=== PATIENT | female | born 1945 | race Caucasian/White ===

== ENCOUNTER → 2019-02-04 11:05 | Outpatient (CLI) | payer MEDICARE, SELFPAY ==
--- NOTE | 2019-02-04 | DI.MRI.S_ITS ---
PROCEDURE: MR PELIS WO/W CON INDICATIONS: disorder of bone, unspecified TECHNIQUE: Noncontrast axial and oblique coronal T1 spin echo and STIR through the sacroiliac joints. COMPARISON: [facility], RG, MRI PELVIS W/WO CONTRAST, 08/28/2018, 15:07. SNO Outside Film, NM, NM BONE SCAN WHOLE BODY, 06/06/2018, 9:15. SNO Outside Film, MR, MR HIP LEFT WITHOUT CONTRAST, 05/28/2018, 14:36. SNO Outside Film, RG, HIP COMP MIN 2VW (LT), 05/12/2018, 11:38. FINDINGS: Image quality: Excellent. Bones: The sacroiliac joints appear intact. No adjacent bone marrow edema to suggest active sacroiliitis. No bony ankylosis. No suspicious marrow space occupying lesions. Note is made of mild focal marrow signal abnormality at the anterior acetabular roof of the left hip, slightly more prominent on the current study than on the comparison MRI from 05/28/18, however the comparison is somewhat difficult due to to difference in MR scanner is utilized. There has been minimal interval worsening if any. The abnormality is comprised of focal edema, having not increased in size, but somewhat better visualized by the current MR scanning technique. This is best seen on sagittal series 4 image 35 when compared to prior series 701, image 15. It is also visible on the axial fluid sensitive imaging series 6 image 20 versus prior series 601 and image 33. Within the proximal metadiaphyseal junction of the left femur there is a rounded focus of elevated fluid signal exactly centered in the medullary space previously seen on series 801, image 16 versus series 3 image 22. This also has not enlarged in size. Throughout the remainder of the osseous structures of the pelvis no marrow space abnormality is seen. No adenopathy is found. No impingement on the sacral plexus is identified. Soft tissues: No presacral masses. Rectum appears normal in caliber and wall thickness. No pathologic free pelvic fluid. IMPRESSION: The earliest available comparable study is from a [facility] dated 05/28/18, and is not changed over time. As discussed above there is mild medullary space edema at the anterior border of the acetabular roof on the left, and also focal central medullary space edema in a rounded morphology measuring approximately 1 cm diameter at the proximal metadiaphyseal junction of the left femur. Each of these areas appear essentially identical by MR scanning considering slight differences in scan technique. The acetabular abnormality is considered likely degenerative in origin. This area shows mild asymmetric bone scan activity as expected, from the study performed 06/06/18. The proximal femoral medullary space abnormality is most likely benign given the absence of abnormal bone scan activity in that area on the prior nuclear medicine bone scan 06/06/18. Each of these areas cannot be identified by plain film. If followup is clinically desired MR scanning appears warranted rather than plain film followup. Dictated by: Freddy Michelle M.D. on 02/13/2019 at 10:40 Approved by: Freddy Michelle M.D. on 02/13/2019 at 10:47
== END ==
PROVIDERS: Visit Provider Family Medicine
DX: M89.9 Disorder of bone, unspecified (principal)
CPT/HCPCS: 72197; A9579

== ENCOUNTER 2024-05-28 10:15 | Day surgery (SDC) | payer MEDICARE, OTHER, SELFPAY ==
[2024-05-28 11:12] VITALS: BP 120/60; PULSE 76; RESP 16; TEMP 36.1; O2SAT 99
[2024-05-28 11:25] VITALS: BMI 21.9
--- NOTE | 2024-05-28 11:36 | P.HP_ITS ---
History of Present Illness History of Present Illness Date Patient Seen: 05/28/24 Time Patient Seen: 11:36 Chief complaint: SDC Narrative: Maria Luz is a 78-year-old woman here for colonoscopy. Her last colonoscopy was at [facility]. No family history of colon cancer. [facility] Social History Smoking Status: Never smoker alcohol intake: current Meds Home Medications and Allergies Home Medications Medication Instructions Recorded Confirmed Type sodium,potassium,mag sulfates 17.5 See Rx Instructions PO .COMPLEX 04/20/24 Rx gram-3.13 gram-1.6 gram oral soln #354 mL (Suprep Bowel Prep Kit) Allergies Allergy/AdvReac Type Severity Reaction Status Date / Time No Known Drug Allergies Allergy Verified 05/28/24 11:08 Exam Vital Signs (past 8 hours): - 05/28/24 11:12 Temperature 97 F L Pulse Rate 76 Respiratory Rate 16 Blood Pressure 120/60 Pulse Oximetry 99 Const General: healthy appearing Resp Effort & Inspection: normal respiratory effort Assessment & Plan Assessment and plan (1) Colon cancer screening: Status: Acute Plan Colonoscopy Time-Based Coding :: [TOTAL MINUTES] spent with patient and on the chart (including review of chart, obtaining history, exam, reviewing outside data, placing orders, documenting exam and treatment plan, and counseling patient) on [DATE].
[2024-05-28 12:00] VITALS: BP 104/62; PULSE 61; RESP 16; TEMP 36.7; O2SAT 98
--- NOTE | 2024-05-28 12:00 | PM.OP.COLON ---
Operative Date/Time/Diagnoses Date of procedure: 05/28/24 Time of procedure: 12:00 Pre-op diagnosis: Colon cancer screening Post-op diagnosis: same Procedure & Clinicians Study performed: Colonoscopy Same procedure as scheduled: Yes Surgeon: Jam Deng Procedure Notes Procedure in detail: Surgeon: Jam Deng MD Anesthesia: Hannah Valenzuela CRNA Procedure: The patient was brought to the endoscopy suite, placed in left lateral decubitus position. The patient was connected to monitoring devices. A time-out was performed. Sedation was administered. Once the patient was adequately sedated, a digital rectal exam was performed and was normal. The scope was then inserted and advanced to the cecum where the appendiceal orifice was identified and photographed. The scope was then slowly withdrawn over greater than 6 minutes. The mucosa was thoroughly inspected. No abnormalities were identified. The scope was retroflexed in the rectum. The scope was straightened and removed. The patient was awakened and brought to recovery. Scope withdrawal time: 7 minutes Sedation time: 14 minute EBL: 0 Findings: Normal colon Post-procedure Disposition: PACU
[2024-05-28 12:05] VITALS: BP 95/68; PULSE 78; RESP 12; TEMP 36.6; O2SAT 98
[2024-05-28 12:11] VITALS: BP 105/65; PULSE 65; RESP 15; TEMP 36.6; O2SAT 98
== END 2024-05-28 12:24 | disposition home or self-care (01) ==
PROVIDERS: PCP Internal Medicine; Referring Provider Surgery; Visit Provider Surgery
PROC: 0DJD8ZZ Inspection of Lower Intestinal Tract, Via Natural or Artificial Opening Endoscopic (ICD-10-PCS; CPT 45378; principal; 2024-05-28 11:30)
DX: Z12.11 Encounter for screening for malignant neoplasm of colon (principal)
CPT/HCPCS: G0121; J2704

== ENCOUNTER → 2024-06-29 12:26 | Outpatient (CLI) | payer MEDICARE, OTHER, SELFPAY ==
--- NOTE | 2024-06-29 12:28 | DI.RAD.S_ITS ---
PROCEDURE: XR CHEST 2V INDICATIONS: Shortness of breath TECHNIQUE: 2 views of the chest were acquired. COMPARISON: None. FINDINGS: Surgical changes and devices: None. Lungs and pleura: Lungs are clear. No pleural effusions or pneumothorax. Mediastinum: Mediastinal contours are normal. Heart size is normal. Bones and chest wall: No suspicious bony abnormalities. Soft tissues appear unremarkable. IMPRESSION: No acute cardiopulmonary pathology. Dictated by: Ezekiel Payne M.D. on 06/29/2024 at 18:53 Approved by: Ezekiel Payne M.D. on 06/29/2024 at 18:53
== END ==
PROVIDERS: PCP Internal Medicine; Referring Provider Internal Medicine; Visit Provider Internal Medicine
DX: R06.02 Shortness of breath (principal)
CPT/HCPCS: 71046

== ENCOUNTER → 2024-07-13 16:07 | Outpatient (CLI) | payer MEDICARE, OTHER, SELFPAY | LOC: RESP 16:08 | PROVIDERS: PCP Internal Medicine; Referring Provider Internal Medicine; Visit Provider Internal Medicine | DX: R06.02 Shortness of breath (principal); R94.2 Abnormal results of pulmonary function studies | CPT/HCPCS: 94060; 94726; 94729 ==

== ENCOUNTER 2024-08-25 11:37 | Day surgery (SDC) | payer MEDICARE, OTHER, SELFPAY ==
[2024-08-13 08:08] VITALS: BMI 22.6
[2024-08-13 09:45] VITALS: BMI 22.6
[2024-08-25] VITALS (9 sets, daily range): BP systolic 113–160; BP diastolic 55–82; PULSE 16–62; RESP 16–98; TEMP 35.8–36.6; O2SAT 97–100; BMI 21.9
--- NOTE | 2024-08-25 | DI.RAD.S_ITS ---
PROCEDURE: [id number] W PEL IF PERFORMED INDICATIONS: INTEROP TOTAL LEFT HIP ARTHROPLASTY TECHNIQUE: 4 intraoperative fluoroscopic view(s) of the left hip(s). COMPARISON: None. FINDINGS: Intraoperative fluoroscopic images shows left total hip arthroplasty in progress. IMPRESSION: Fluoro guidance was provided intraoperatively for left total hip arthroplasty performed by ordering physician. Dictated by: Ezekiel Payne M.D. on 08/25/2024 at 17:35 Approved by: Ezekiel Payne M.D. on 08/25/2024 at 17:36
--- NOTE | 2024-08-25 06:36 | DI.RAD.S_ITS ---
PROCEDURE: XR HIP W PEL IF DONE LT 2V INDICATIONS: left total hip TECHNIQUE: AP pelvis and lateral view of the hip acquired. COMPARISON: None. FINDINGS: Bones: Patient is status post left hip arthroplasty, with hardware components in expected positions. The hip joint appears congruent. The visualized bony structures appear intact. Soft tissues: Overlying postoperative changes are noted. No suspicious soft tissue densities. IMPRESSION: Expected post-operative appearance of a hip arthroplasty. Dictated by: Ezekiel Payne M.D. on 08/25/2024 at 17:12 Approved by: Ezekiel Payne M.D. on 08/25/2024 at 17:13
[2024-08-25] MEDS: CELECOXIB 200 MG CAPSULE PO (12:33)
[2024-08-25] MEDS: ACETAMINOPHEN 325 MG TABLET 975 MG PO (12:33)
[2024-08-25] MEDS: LACTATED RINGERS 1,000 ML 42 ML IV ×2 (12:34→16:03)
[2024-08-25] MEDS: VANCOMYCIN 1,000 MG in SODIUM CHLORIDE 0.9% 250 ML IV (13:30)
--- NOTE | 2024-08-25 13:48 | P.OP_ITS ---
Operative Date/Time/Diagnoses Date of procedure: 08/25/24 Time of procedure: 14:00 Pre-op diagnosis: Left hip OA Post-op diagnosis: same Procedure & Clinicians Procedure: Left total hip arthroplasty anterior approach Same procedure as scheduled: Yes Indications: The patient has had progressively worsening left hip pain with radiographic trinh ges consistent with arthritis. Non-operative management has failed and the patient has requested total hip replacement. The risks, benefits and alternatives to surgery were discussed with the patient prior to proceeding. Risks discussed included, but were not limited to, failure to relieve pain, leg length discrepancy, dislocation, stiffness, infection, nerve damage, deep venous thrombosis, pulmonary embolism, stroke, coma, heart attack, permanent paralysis and , as well as the potential need for eventual revision of the prosthetic. Surgeon: Munira Garcia Room Service Waiter/Waitress: Aracelis Grant Anesthesia Type: General and Spinal Operative Notes Findings: Severe left hip OA, soft bone, adequate stability Closure Type: primary Specimen(s): none sent Prosthetic devices, grafts, tissues, transplants, or devices: Garcia and nephew R3 48, neutral poly liner 48 x 32,one 6.5 mm screw, polar stem standard offset size 2, 32 x -3 cobalt chrome head Estimated Blood Loss (mL): 250 Procedure in detail: The patient was brought to the operating room. Patient was carefully positioned in the supine position. Time-out was performed and antibiotics were given. Anesthesia was induced. She was positioned in the on the table in order to allow hyperextension of the hip. The left lower extremity was prepped and draped in a standard sterile fashion. An anterior left hip incision was made 1 fingerbreadth lateral to the anterior superior iliac spine and extended distally towards the greater trochanter. Dissection was carried out through skin and subcutaneous tissues. Superficial hemostasis was achieved. The fascia over the tensor fascia shelly was defined and incised with a knife. Two Allis clamps were used to grasp the fascia. Tensor fascia shelly was retracted laterally. A gelpi retractor was placed. Dissection was carried out down along the neck. The circumflex vessels were carefully identified and cauterized with the Aqua Mantis. A PA was used during the procedure was essential for intraoperative retraction and safe implantation of the components. There was good visualization of the femoral neck. A Cobra was placed superior to the neck and the gluteus fibers were carefully stripped from that superior aspect of the capsule. A 2nd retractor was placed along the inferior aspect of the neck. The rectus insertion along the capsule was partially released. A 3rd retractor that was then gently placed over the rim of the acetabulum under the rectus. Capsule was carefully incised and released from the intertrochanteric line circumferentially superior to the mid sagittal line and inferiorly to the mid sagittal line until the lesser trochanter was palpable. A tag stitch was placed both in the superior and inferior limb of the capsular insertion. Along the acetabulum capsule was also released up to the mid sagittal 12:00 position. A portion of the labrum was resected. A saw was used to perform an osteotomy at the level of the intertrochanteric line and the junction of the superior femoral neck leaving approximately 1 finger breath of residual inferior neck above the lesser trochanter. A 2nd cut was made along the femoral neck at the base of the head and a napkin ring of neck was removed. Corkscrew was placed in the femoral head and the head was removed without difficulty. Retractors were then repositioned around the acetabulum. Residual labrum was resected and additional osteophytes were removed. A reamer that was 4 mm below the templated size was placed by hand in the acetabulum and it was reamed to centralize the acetabulum. It was then reamed up to 2 under the templated size and fluoroscopy was brought in to confirm the position of the reaming and depth of reaming. I reamed 1 under the anticipated size. A trial cup was placed and noted that it was appropriately sized and fluoroscopy confirmed position and depth. The component was open and inserted without difficulty fluoroscopic imaging was used to confirm that the cup had been adequately seated and was well positioned. It was further stabilized with a single screw. Neutral poly liner was placed. The cup was tested and noted to be stable. Attention was then directed to the femur. The femur was gently hyperextended additional capsular release was performed as needed in order to allow adequate visualization of the proximal femur with elevation of the femur. Patient was placed in a hyperextended slightly adducted position with maximum external rotation. Box osteotome was used to check for any residual neck as well as sclerotic bone along the trochanter. Hammond pepper was placed in the femur. Additional broaching was performed. Canal finder was used to determine the alignment of the canal and position. Size 1 broach was placed. The canal was then appropriately broached up to the templated size as long as there was adequate stability of the broach and serial advancement of the broach without excessive impingement. Specific attention was directed at avoiding varus attempting to direct the distal aspect of the broach more anteriorly and avoiding excessive anteversion. Trial reduction showed acceptable range of motion, good stability, no posterior impingement, episcopalian of leg length and appropriate lateral shuck. I also hyperflexed the hip and checked that there was no impingement anteriorly and there was good stability with flexion, adduction and internal rotation. Marcaine and Exparel were injected. The stem was placed without difficulty. Repeat trial reduction and x-ray showed acceptable overall position, length, and no evidence of the femoral fracture. Final head was placed. Wound was meticulously irrigated with normal saline. The hip was reduced and additional Exparel and Marcaine were injected. The capsule was closed with interrupted nonabsorbable sutures. The fascia of the tensor was closed with interrupted and running Vicryl. No drain was placed. Any tensor fascia shelly muscle that appeared to be contused or injured which was a minimal amount was carefully resected. Capsule around the tensor was injected with Exparel and Marcaine. The skin was closed with barbed stitches for the subcutaneous tissue and skin. We also used surgical glue. The wound was dressed sterilely. Brief Betadine soak was also used and was meticulously irrigated with normal saline. Patient was transferred to recovery room in satisfactory condition. Complications: none Post-operative Condition: stable Disposition: Acute Care Plan for aftercare: The patient will be maintained on a standard total hip replacement protocol with weight bearing as tolerated and anterior hip precautions. The patient will receive Aspirin and sequential compression devices for DVT prophylaxis. The patient will be discharged home when safe for the home environment.
--- NOTE | 2024-08-25 13:48 | PM.PREOP ---
Pre-operative Note Interval Note History & Physical reviewed/Exam performed by Physician: Yes Changes to H&P: No
[2024-08-25] MEDS: BUPIVACAINE 0.25% W/ EPI 30 ML VIAL INJ ×2 (14:53→14:54)
[2024-08-25] MEDS: CEFAZOLIN 2 GM/100 ML PREMIX 100 ML IV ×2 (14:54→22:22)
[2024-08-25] MEDS: BUPIVACAINE LIPOSOME 266 MG/20 ML VIAL INJ (14:54)
[2024-08-25] MEDS: TRANEXAMIC ACID 1,000 MG VIAL 1000 MG INJ (14:55)
[2024-08-25] MEDS: LACTATED RINGERS 1,000 ML 100 ML IV (20:49)
[2024-08-25] MEDS: OXYCODONE IR 5 MG TABLET PO (20:52)
[2024-08-25] MEDS: DOCUSATE 100 MG CAPSULE PO (20:53)
[2024-08-25] MEDS: ACETAMINOPHEN 325 MG TABLET 650 MG PO (20:53)
[2024-08-25] MEDS: ASPIRIN EC 81 MG TABLET PO (20:53)
--- NOTE | 2024-08-25 22:32 | PC.NURSE ---
Addendum entered by Isabella Salcido R.N. 08/26/24 06:42: 0645: Pt taking PO fluids, d/c'ed IVF and NS locked. Addendum entered by Isabella Salcido R.N. 08/26/24 02:48: 0230: Pt called with concerns of side being wet after turning in the bed. Upon assessment, this RN noted a disconnected IV tubing undercutter with blood dripping out onto patient's gown and IV fluids running on to pt's bed. Pt did not know how this became disconnected. Paused IVF, disconnected undercutter, replaced IV tubing, and scrubbed remaining Jloop hub with CHX cap before flushing PIV, reconnecting pt and restarting IV fluids. Changed pt's gown and green pad, helped pt wash hands, wiped down call light with CHX wipe. VSWNL. Pt resting comfortably, call light within reach, plan of care continues. Original Note: NOC 1944: Pt OOB with 1PA/FWW, ambulated steadily to commode and back to bed. Pt voided 400mL post-surg. Educated pt director of agronomy light. Pt resting comfortably, pt reports needs met, bed low/locked, call light within reach. Plan of care continues.
[2024-08-26] MEDS: IBUPROFEN 400 MG TABLET PO ×2 (00:02→08:58)
[2024-08-26 00:20] VITALS: BP 152/72; PULSE 60; RESP 18; TEMP 36.4; O2SAT 95
[2024-08-26 04:17] LABS: Hematocrit 33.7 % (36-46); Hemoglobin 11.5 g/dL (12.0-16.0)
[2024-08-26] MEDS: CEFAZOLIN 2 GM/100 ML PREMIX 100 ML IV (06:01)
[2024-08-26] MEDS: OXYCODONE IR 5 MG TABLET PO ×3 (06:22→10:54)
[2024-08-26 08:00] VITALS: BP 140/71; PULSE 65; RESP 14; TEMP 36.3; O2SAT 97
--- NOTE | 2024-08-26 08:12 | PM.DS.1 ---
History of Present Illness History of Present Illness Date Patient Seen: 08/26/24 Time Patient Seen: 08:12 Chief complaint: OPB Narrative: The patient has had progressively worsening left hip pain with radiographic changes consistent with arthritis. Non-operative management has failed and the patient has requested total hip replacement. The risks, benefits and alternatives to surgery were discussed with the patient prior to proceeding. Risks discussed included, but were not limited to, failure to relieve pain, leg length discrepancy, dislocation, stiffness, infection, nerve damage, deep venous thrombosis, pulmonary embolism, stroke, coma, heart attack, permanent paralysis and , as well as the potential need for eventual revision of the prosthetic. Discharge Providers Provider Discharge Date: 08/26/24 Primary care physician: DAVID Guillaume Consults: 08/13/24 10:27 Consult to Anesthesiology Routine Comment: Consulting Provider: Anesthesiologist Reason for consultation: Surgeon request for cardiac. 08/25/24 06:36 Consult to Anesthesiology Routine Comment: Consulting Provider: Anesthesiologist Reason for consultation: Regional block for post operative pain control Has provider been notified: No 08/25/24 17:06 Consult to Discharge Planning Routine Comment: Consult to Occupational Therapy Evaluate & Treat Comment: Physician Instructions: Evaluate and treat Consult to Physical Therapy Evaluate & Treat Comment: Physician Instructions: post op RACHEL protocol Discharge provider: Pvaan Griffith PA-C Summary Hospital Course Discharge Diagnosis: Left hip OA Hospital Course: Procedure: Left total hip arthroplasty anterior approach Same procedure as scheduled: Yes Surgeon: Munira Garcia Property Analyst: Aracelis Grant Anesthesia Type: General and Spinal Operative Notes Findings: Severe left hip OA, soft bone, adequate stability Closure Type: primary Specimen(s): none sent Prosthetic devices, grafts, tissues, transplants, or devices: Garcia and nephew R3 48, neutral poly liner 48 x 32,one 6.5 mm screw, polar stem standard offset size 2, 32 x -3 cobalt chrome head Estimated Blood Loss (mL): 250 Status at Discharge Cognitive/behavioral status at discharge: oriented Functional status at discharge: uses cane/walker Overall status at discharge: patient is back to baseline Time Spent with Patient Time spent: Less than 30 minutes Exam Vital Signs (past 8 hours): - 08/26/24 00:20 Temperature 97.6 F Pulse Rate 60 Respiratory Rate 18 Blood Pressure 152/72 H Pulse Oximetry 95 Oxygen Flow Rate 0 Oxygen Delivery Method Room Air Oxygen Flow Rate 0 Narrative Exam Narrative: Patient found sitting in the chair. Patient's pain is controlled with oral medication. ?Pain is localized to surgical site. ?Patient declines any new numbness or tingling at the surgical extremity. ?Patient denies any shortness of breath, dizziness, light-headedness, nausea, vomiting, fever or chills. 5/5 strength in hip flexors, quadriceps, hamstrings, DF, PF, EHL bilaterally. Sensation to light touch intact throughout BLE. Calves soft, compressible, nontender. Dressing placed intraoperatively CDI. Const General: cooperative, healthy appearing and comfortable Resp Effort & Inspection: normal respiratory effort and able to speak in complete sentences Objective Labs 08/26/24 03:47 Labs: Laboratory Results - last 24 hr 08/26/24 03:47 Hgb 11.5 L Hct 33.7 L PFSH Medical History (Updated 08/13/24 @ 08:07 by Anabella Clement, RN) Normal cardiac ejection fraction (07/09/24) HLD (hyperlipidemia) HTN (hypertension) Surgical History (Updated 08/13/24 @ 10:23 by Anabella Clement, RN) History of carpal tunnel release Social History household members: spouse Smoking Status: Never smoker alcohol intake: current Discharge Assessment & Plan Assessment and Plan Assessment: Status post left hip total arthroplasty Plan of Treatment: Discharge to home. ? Anterior Hip Pre-causions. Ambulate and weight bear as tolerated with assistive devices. ? Aspirin 81 mg twice a day for 6 weeks for DVT prevention. ? Baseline pain relief with acetaminophen 500mg every 4 hours as needed and ibuprofen 400 mg every 4 hours as needed. ?Patient has been prescribed oxycodone 5 mg every 4 ?hours as needed for breakthrough pain. ? Initiate physical therapy in the next 5-10 days. ? Keep dressing clean and dry. Keep dressing on until first office visit. If dressing becomes dirty or disrupted, replace with appropriate sized dressing. Follow up in clinic in 2 weeks for wound check. Contact clinic if there are any questions or concerns. Discharge Plan Discharge Plan Patient Disposition: Home Discharge orders & Medications Discharge Orders: Discharge (Order); Ordered 08/26/24 Ordered By: Pavan Griffith Prescriptions: New aspirin 81 mg Tablet,Delayed Release (Dr/Ec) 81 mg PO BID Qty: 90 0RF Continued brimonidine 0.2 % drops 1 drp EYE-BOTH BID albuterol sulfate 90 mcg/actuation HFA aerosol inhaler 2 puff inhalation Q4H PRN (Reason: SOB) timolol maleate 0.5 % drops 1 drp EYE-BOTH BID captopril 12.5 mg Tablet 12.5 mg PO BID Changed ibuprofen 200 mg Tablet 400 mg PO Q4HR PRN (Reason: Hip pain.) Qty: 120 0RF Discontinued naproxen sodium [Aleve] 220 mg Tablet 220 mg PO Q12H PRN (Reason: Hip pain.) Follow up/Referrals: Leandra Freire ARNP [Primary Care Provider] - Diet/Activity/Treatments Diet: Diet as Tolerated Activity: Ambulate multiple times a day. Use a cane or walker as needed. Full weight on leg. Cold/Heat Therapy: Use ice multiple times a day. Skin/Wound/Dressing Care Skin care: Leave dressing on. Okay to shower Report to your healthcare provider any signs of infection, such as:: chills, fever, night sweats, unusual drainage and unusual redness Dressing: May shower. Leave dressing in place until follow up in office. No bathing or otherwise soaking incision. Call the office if the dressing becomes saturated inside. Visit Report/Discharge Packet Instructions: DI for Hip Replacement Stand Alone Forms: Patient Portal/API, Surgery Discharge Discharge Data Primary Care Provider: Leandra Freire Attending Provider: Munira Garcia
--- NOTE | 2024-08-26 08:30 | OT.IP.EVAL ---
Current Diagnoses Unilateral primary osteoarthritis, left hip (08/25/24) Surgery Performed Operation Date: 08/25/24 13:45 Actual Procedures p Total Hip Arthroplasty/Anterior Approach(Left) - Munira Garcia MD Past Medical History (Last Updated 08/13/24 @ 08:07 by Anabella Clement, RN) HLD (hyperlipidemia) HTN (hypertension) Normal cardiac ejection fraction (07/09/24) Surgical History (Last Updated 08/13/24 @ 10:23 by Anabella Clement, RN) History of carpal tunnel release Occupational Therapy Inpatient Evaluation/Re-Eval M1 PT/OT-IP Prior Functional Status Start: 08/26/24 12:03 Freq: NEEDED Status: Active Protocol: Document 08/26/24 12:03 [facility] (Rec: 08/26/24 12:16 [facility] [id number]) Medical Review Prior Functional Status Communication I Mobility and Gait I but had pain. Activities of Daily Living and IADL's Able to do all ADL and IADL needs but having difficulty to clip her left toenails. Social History Household Members spouse Living Arrangements House Number of Floors (Floors) One Floor Number of Stairs To Enter/Railing? One step from the front with no rails. Home Environment Standard Height Toilet,Tub/ Shower Home Equipment Front Wheel Walker,Raised Toilet Seat w/Armrests,Shower Seat with Backrest,Hand Held Shower,Grab Bars In Shower M2 OT-IP Current Condition Start: 08/26/24 12:03 Freq: Status: Active Protocol: Document 08/26/24 12:03 [facility] (Rec: 08/26/24 12:16 [facility] [id number]) Occupational Therapy Current Condition Current Condition Evaluation Date 08/26/24 Treatment Diagnosis S/P R RACHEL Diagnosis Onset Date 08/25/24 Post Operative Precautions Anterior Hip Precautions No Hip Extension,No Hip External Rotation M3 OT- IP Subjective and Pain Start: 08/26/24 12:03 Freq: Status: Active Protocol: Document 08/26/24 12:03 [facility] (Rec: 08/26/24 12:16 [facility] [id number]) OT- Subjective Occupational Therapy Visit Type Type Initial Evaluation Visit Start Time 08:30 Visit Stop Time 09:13 Occupational Therapy Visit Comments Patient Comments Pt agreed to get up and get dressed. Patient/Caregiver Goals To go home. OT Pain Assessment Pain When Pain Assessed At Rest Pain Present Pain Present Pain Reported Location Left Hip Intensity 3 Scale Used Numeric (0 - 10) M4 OT- IP ADL's Start: 08/26/24 12:03 Freq: Status: Active Protocol: Document 08/26/24 12:03 [facility] (Rec: 08/26/24 12:16 [facility] [id number]) OT LRM-[id number]-Yybawce General Evaluation Self-Feeding Ability Independent OT ADL-Grooming General Evaluation Grooming Ability Standby Assistance OT ADL-Oral Care General Eval Oral Care Ability Independent OT ADL-Dressing General Eval Upper Body Dressing Ability Independent Lower Body Dressing Ability Standby Assistance Comments OT Dressing Comments Assist for socks. Educated to dress the LLE first and take out last. OT ADL-Toileting Comments OT Toileting Comments Educated to be mindful of her LLE while wiping and dressing. OT ADL-Bathing Comments OT Bathing Comments Educated care of dressing while showering. M5 OT- IP IADL's Start: 08/26/24 12:03 Freq: Status: Active Protocol: Document 08/26/24 12:03 [facility] (Rec: 08/26/24 12:16 [facility] [id number]) OT-Instrumental Activities of Daily Living Deficits IADL Deficits Identified Deficits Home Safety Awareness Awareness of Need for Assistance at Home Good Awareness Ability to Problem Solve Emergency Able to Problem Solve Situations Medication Management Medication Management No Deficits Identified Money Management Money Management No Deficits Identified Meal Preparation Meal Preparation Comments to assist. Flap Presser Flap Presser Comments to assist. M6 OT- IP Functional Cognition Start: 08/26/24 12:03 Freq: Status: Active Protocol: Document 08/26/24 12:03 [facility] (Rec: 08/26/24 12:16 [facility] [id number]) Cognitive Factors Limiting Selfcare Function Cognitive Ability Level of Alertness Alert Patient Orientation Name,Age,Birthday,Month,Date, Year,Day of Week,Place, Situation Attention Span Ability Capable of Focused Attention, Capable of Sustained Attention Ability to Follow Commands Able to Follow Multi-Step Commands Memory Description No Deficits Noted Safety Awareness Decreased Ability to Apply Precautions Cognitive Comments Cognitive Assessment Comments Reminders to follow precautions when up on her feet. OT- Vision and Hearing OT- Hearing Assessment OT- Hearing Assessment WFL OT- Vision Assessment Visual Acuity Glasses For Reading Visual Attentiveness WFL Occular Pursuits WFL Visual Convergence WFL M7 OT- IP Mobility and Balance Start: 08/26/24 12:03 Freq: Status: Active Protocol: Document 08/26/24 12:03 [facility] (Rec: 08/26/24 12:16 [facility] [id number]) OT- Bed Mobility Assessment Supine to Sit Supine to Sit Assist Standby Assistance Sit to Supine Sit to Supine Assist Standby Assistance Scooting Scooting to Edge of Bed Standby Assistance OT-Transfer Assessment Sit to and From Stand Sit to and from Stand Standby Assistance Transfers Transfer Ability Standby Assistance Technique Transfer Destination Bed,Chair,Toilet Devices Transfer Assistive Devices Gait Belt,Front Wheeled Walker Comments Mobility Comments SBA with mobility in the room and moving well. Educated to keep her toes up while getting into and out of bed and the car. OT- Balance Assessment Sitting Balance and Reactions Static Sitting Balance Ability Normal Dynamic Sitting Balance Ability Normal Standing Balance and Reactions Static Standing Balance Ability Good Dynamic Standing Balance Ability Fair M8 OT- IP Objective Assessments Start: 08/26/24 12:03 Freq: Status: Active Protocol: Document 08/26/24 12:03 [facility] (Rec: 08/26/24 12:16 [facility] [id number]) OT Gross Range of Motion Upper Extremity Range of Motion Assessment Within Functional Limits OT Strength Upper Extremity Strength Assessment Within Functional Limits M9 OT- IP Assessment and Plan Start: 08/26/24 12:03 Freq: Status: Active Protocol: Document 08/26/24 12:03 [facility] (Rec: 08/26/24 12:16 [facility] [id number]) OT Summary Assessment and Plan Potential Rehabilitation Potential Excellent Analytic Complexity at Evaluation Low Summary OT Impairments Pain,Balance,Functional Mobility,Dressing,Toileting, Bathing,Shower Transfers Progress Towards Goals Progressing Toward Goals Assessment Summary Pt low complexity and main barrier is pain, step and just needing occasional reminders to incorporate her hip precautions when up on her feet. Pt to go home with her and attend outpt PT. Goals Dressing Goal Independent Toileting Goal Independent Bathing Goal Standby Assistance Toilet Transfer Goal Independent Shower Transfer Goal Standby Assistance Days to Meet Goals 2 Frequency of Treatment Frequency Of Treatment Once a Day Treatment Plan OT Treatment Plan ADL Training,Functional Mobility,Patient/Family Education,Discharge Planning Discharge Recommendations OT Discharge Recommendations Home with Assistance, Outpatient PT Transportation Needs at Discharge Private Vehicle
[2024-08-26] MEDS: ASPIRIN EC 81 MG TABLET PO (08:57)
[2024-08-26] MEDS: ACETAMINOPHEN 325 MG TABLET 650 MG PO (08:57)
[2024-08-26] MEDS: polyethylene glycoL 3350 17 GM POWD.PACK PO (08:57)
[2024-08-26 08:58] VITALS: BP 149/77; PULSE 66
[2024-08-26] MEDS: DOCUSATE 100 MG CAPSULE PO (08:58)
[2024-08-26] MEDS: lisinopriL 5 MG TABLET PO (08:58)
--- NOTE | 2024-08-26 09:25 | PT.IIE ---
Current Diagnoses Unilateral primary osteoarthritis, left hip (08/25/24) Surgery Performed Operation Date: 08/25/24 13:45 Actual Procedures p Total Hip Arthroplasty/Anterior Approach(Left) - Munira Garcia MD Surgical History (Last Updated 08/13/24 @ 10:23 by Anabella Clement, RN) History of carpal tunnel release Medical History (Last Updated 08/13/24 @ 08:07 by Anabella Clement, RN) HLD (hyperlipidemia) HTN (hypertension) Normal cardiac ejection fraction (07/09/24) Physical Therapy Inpatient Evaluation/Re-Eval M1 PT/OT-IP Prior Functional Status Start: 08/26/24 12:42 Freq: NEEDED Status: Active Protocol: Document 08/26/24 09:25 [facility] (Rec: 08/26/24 12:52 AB [id number]) Medical Review Prior Functional Status Medical History Reviewed Yes Communication able to make needs known Mobility and Gait pt stated that she was independent with all mobilities and ambulation without AD Activities of Daily Living and IADL's per OT note: Able to do all ADL and IADL needs but having difficulty to clip her left toenails. Social History Household Members spouse Living Arrangements House Number of Floors (Floors) One Floor Number of Stairs To Enter/Railing? 1 step to enter the house Home Environment Standard Height Toilet,Tub/ Shower Home Equipment Front Wheel Walker,Raised Toilet Seat w/Armrests,Shower Seat with Backrest,Hand Held Shower,Grab Bars In Shower M2 PT-IP Current Condition Start: 08/26/24 12:42 Freq: NEEDED Status: Active Protocol: Document 08/26/24 09:25 [facility] (Rec: 08/26/24 12:52 AB [id number]) Physical Therapy Current Condition Current Condition Evaluation Date 08/26/24 Treatment Diagnosis s/p L RACHEL anterior; difficulty in walking Onset Date 08/25/24 M3 PT-IP Subjective Start: 08/26/24 12:42 Freq: NEEDED Status: Active Protocol: Document 08/26/24 09:25 [facility] (Rec: 08/26/24 12:52 AB [id number]) Subjective Physical Therapy Visit Type Type Initial Evaluation Visit Start Time 09:25 Visit Stop Time 10:00 Number of BUSINESS ETHICS PROFESSOR Visits 0 Physical Therapy Visit Comments Patient Comments agreeable to do PT Therapy Pain Assessment Pain When Pain Assessed At Rest Pain Present Pain Present Pain Reported Location Left Hip Intensity 2 Scale Used Numeric (0 - 10) Pain Management Techniques Apply Cold,Distraction, Modification of Treatment,Re- positioning,Timing of Activity with Medications M4 PT-IP Mobility and Gait Start: 08/26/24 12:42 Freq: NEEDED Status: Active Protocol: Document 08/26/24 09:25 [facility] (Rec: 08/26/24 12:52 AB [id number]) PT-Bed Mobility Assessment Supine to Sit Supine to Sit Standby Assistance Sit to Supine Sit to Supine Standby Assistance PT-Transfer Assessment Sit to and From Stand Sit to and from Stand Standby Assistance,1 Person Assistance,Use of Upper Extremities Equipment Transfer Assistive Device Gait Belt,Front Wheeled Walker Orthotic/Prosthetic Devices or Brace: No Transfers Transfer Destination Bed,Chair Comments Mobility Comments pt sitting on the chair and agreeable to do PT. obtained PLOF and home set up. reviewed anterior hip precautions with pt. pt completed sit to stand SBA and ambulated in room using FWW to EOB SBA. pt completed sit< >supine SBA. pt agreed to do stairs. sit to stand from EOB SBA and ambulated in the hallway using FWW ~ 100 ft SBA to occasional CGA. completed up/down platform step using FWW CGA and initially requiring cues but able to complete without cues on 2nd attempt. pt ambulated back to her room using FWW SBA to CGA. pt sat on the chair. positioned pt on the chair. call light and table placed within reach. pt stated that she will just tell her spouse on how to asisst her and does not think caregiver training is needed. pt without further concerns. Gait Assessment Gait Gait Assistance Required: Standby Assistance,Contact Guard Assist,1 Person Assist Distance (Feet) 100 Able to Maintain Weight Bearing Status Yes During Gait Assistive Devices Assistive Device Gait Belt,Front Wheeled Walker Orthotic/Prosthetic Devices or Brace: No Gait Deviations General Gait Pattern Antalgic,Decreased Feet Clearance Factors Limiting Gait Function Factors Limiting Gait Function Decreased Activity Tolerance, Decreased Strength,Limited Range of Motion,Pain,Poor Balance,Poor Safety Awareness Stair Climbing Assessment Evaluation Level of Assist On Stairs Contact Guard Assistance Devices Stair Climbing Assistive Devices Front Wheel Walker Technique/Endurance Stair Climbing Direction Ascend and Descend Number of Steps Climbed 1 Query Text: Stair Climbing Set # Repetitions (reps) 2 PT-Balance Assessment Sitting Balance and Reactions Static Sitting Balance Ability Normal Dynamic Sitting Balance Ability Normal Standing Balance and Reactions Static Standing Balance Ability Good Dynamic Standing Balance Ability Fair Device Used FWW M5 PT-IP Objective Assessments Start: 08/26/24 12:42 Freq: NEEDED Status: Active Protocol: Document 08/26/24 09:25 [facility] (Rec: 08/26/24 12:52 AB [id number]) Orientation Orientation/Cognition Level of Alertness Alert Orientation Name,Place,Situation Language Function Ability No Deficits Noted Safety Awareness Understands Safety Issues Memory Description No Deficits Noted Gross Range of Motion Lower Extremity ROM Assessment Within Functional Limits Strength Lower Extremity Strength Assessment Left Impaired Hip 3-/5 Knee 4-/5 Coordination Assessment Gross Coordination Gross Coordination WNL Sensation Assessment Sensation Gross Sensation WNL Muscle Tone Muscle Tone WNL Yes M6 PT-IP Treatment Start: 08/26/24 12:42 Freq: NEEDED Status: Active Protocol: Document 08/26/24 09:25 AB (Rec: 08/26/24 12:52 AB [id number]) Physical Therapy Treatment Education Education Provided Precautions,Weight Bearing Status,Safety M7 PT-IP Assessment and Plan Start: 08/26/24 12:42 Freq: NEEDED Status: Active Protocol: Document 08/26/24 09:25 AB (Rec: 08/26/24 12:52 AB [id number]) PT Summary Assessment and Plan Potential Rehabilitation Potential Good Status of Condition at Evaluation Stable Summary Impairments Pain,ROM,Strength,Balance, Coordination,Sensation,Tone, Cognition,Bed Mobility, Transfers,Gait,Activity Tolerance Assessment Summary pt requiring SBA to CGA with mobilities using fWW. pt plans to go home and spouse to assist her. pt may go home when medically stable. Goals Bed Mobility Goal Independent Transfer Goal Independent,Front Wheeled Walker Gait Goal Independent,Front Wheel Walker Gait Distance 200 Other Goals up/down 1 platform step using FWW mod I Days to Meet Goals 3 Frequency of Treatment Frequency Of Treatment Twice a Day Treatment Plan Physical Therapy Treatment Plan Bed Mobility Training,Transfer Training,Gait Training, Therapeutic Exercise,Balance Retraining,Post Op Education, Discharge Planning,Hot or Cold Pack,Neuromuscular Re-ed, Coordination Retraining,Manual Therapy Precautions Anterior Hip Precautions No Hip Extension,No Hip External Rotation Weight Bearing Status Weight Bearing Status Weight Bear as Tolerated Allowed Weight Bearing Amount (enter % LLE WBAT or #) (%) Recommendations To Nursing Amount of Assist Needed 1 Person Assist Discharge Recommendations PT Discharge Recommendations Home with Assistance, Outpatient PT Transportation Needs at Discharge Private Vehicle
--- NOTE | 2024-08-26 10:50 | CM.DANOTE ---
Initial DCP Assessment Visit Note Reviewed EMR and team rounds for patient's medical status and updates. Met with patient at bedside to introduce self and role. Patient was found to be alert and oriented. Patient was calm and cooperative during our conversation. We concluded that the patient does not appear to have any care discharge care planning needs at this time. Patient lives at home with her spouse She is fully independent with self care and ADLs. She typically transports herself but while she is healing from this surgery her will transport her as needed. Plan is to return back home after leaving the hospital. Payor: Medicare PCP: Dr Freire Patient is a 79 yo F POD #1 after having left total hip arthroplasty surgery. Prior to surgery patient had a history of chronic and steadily worsening left hip pain. X-rays showed moderate to severe osteoarthritis. 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 X-ray also showed multiple fairly large cystic lesions in the acetabulum and osteophyte formation along the left femoral head with subchondral sclerosis and joint space narrowing. Today patient reported feeling well overall. she was excited to work with PT and be cleared to go home today. Patient has already gathered the DME she was told to get by her orthopedist. She has a front wheeled walker, toilet seat riser, and a shower chair. She said she will get a cane when she is not in need of the walker. She has already scheduled her outpatient PT. DCP will continue to monitor for for any evolving needs in relation to discharging home. Discharge Planning/Care Management CM Discharge Assessment Start: 08/26/24 09:35 Freq: Status: Active Protocol: Document 08/26/24 09:36 SARINA (Rec: 08/26/24 10:50 HARMONY [id number]) Discharge Planning Assessment Assigned Pattern Hanger Clayton Nolen RN DPOA/Assigned Designee Name Patient stated her DPOA isher Dave Mac Contact Information [phone] Advance Directives? Yes: POLST Advance Directives on File Yes: POLST History Provided By Patient,Medical Record Expected Length of Stay 1 Has Patient been admitted in last 30 No days? Prior Living Arrangements House Household Members spouse Type of transporation used prior to Drives own vehicle admit Comment Spouse is going to help patient with transportation during her recovery. Plan is for him to bring her home from the hospital later today if all goes well with physical therapy. Independent with ADL's Yes Is patient alert and oriented? Yes Comment None needed prior to surgery. Caregiver for Another No Comment None DME Already Rented / Owned Bath Bench,Elevated Toilet Seat,FWW / Walker Comment Patient said she expects to need a cane when she is improved enough to be done with the walker. She said she is planning to get this herself after discharge. Patient/Family Preference OP PT Therapy Comment Patient said she has already arranged outpatient PT. Barriers to Discharge No Discharge Plan Home Community Services Physical Therapy Transportation Arrangement Patient's spouse will be transporting the patient. Referrals Initiated None needed Whiteboard Updated in Patient Room with Yes name and ext. # of Pattern Hanger Review Status In Process Please Provide Date Initial DC 08/26/24 Assessment Was Performed Pre-Anesthesia Assessment Start: 08/13/24 08:08 Freq: Status: Active Protocol: Document 08/13/24 08:08 LB (Rec: 08/13/24 08:16 LB [id number]) Pre-Anesthesia Assessment PAC Comment 08/13/24 Phone assessment. Preferred Name Yang Patient Information Reviewed Via Phone Assessment Diagnostic Results BMP/CMP,CBC,EKG Comment 05/18/24 Outside results. Primary Care Provider Leandra Freire Medical Clearance Received Yes Seen Specialist in Last 12 Months Yes Specialist Seen Orthopedist Primary Language Chadian Preferred Language Chadian Transfer Station Attendant Required No Height 157.48 cm Weight 56.245 kg Body Mass Index (BMI) 22.6 Hx Anesthesia Reactions No Hx Family Anesthesia Reaction No Hx Malignant Hyperthermia No Hx Blood Transfusion Reaction No Compound Specialist No alcohol intake current Smoking Status Never smoker Comment Left hip. Patient is completely paralyzed or No completely immobile Comment Will bring walker. CPAP/BIPAP use not prescribed Hx SOB Yes Cardiac Testing Yes: Echo 07/09/24 Hx Pacemaker/ICD No Pacemaker Rep Required? No Urinary Catheter Present No Diabetes No Patient No Lactating No Presence of External or Internal Medical No Devices Received a COVID vaccine? Yes Comment Denies covid last 2 months. Marital Status Lives With spouse Patient Discharge Plan Description Return Home Emergency Contact Name Dave Mac - Emergency Contact Advance Directives? Yes Advance Directives on File Yes: VIC Requested Patient Bring Advanced Not Applicable Directives DOS Document 08/13/24 09:45 LB (Rec: 08/13/24 10:27 LB [id number]) Pre-Anesthesia Assessment PAC Comment 08/13/24 Phone assessment. Preferred Name Yang Patient Information Reviewed Via Phone Assessment Assessment Completed With Patient Diagnostic Results BMP/CMP,CBC,EKG Comment 05/18/24 Outside results. Primary Care Provider Leandra Freire Medical Clearance Received Yes Seen Specialist in Last 12 Months Yes Specialist Seen Orthopedist Primary Language Chadian Preferred Language Chadian Transfer Station Attendant Required No Height 157.48 cm Weight 56.245 kg Body Mass Index (BMI) 22.6 Hearing Ability Normal Visual Assist Glasses Dentition Type Teeth, Natural Present Other Aids No Hx Anesthesia Reactions Local anesthesia only. Hx Family Anesthesia Reaction No Hx Malignant Hyperthermia No Hx Blood Transfusions No Anesthesia Review Requested Yes: Surgeon request for cardiac. Compound Specialist No alcohol intake current alcohol intake frequency a few times a week Smoking Status Never smoker Substance Use Type [#R] marijuana Comment 1-2 times per week. Pain Present Pain Reported Comment Left hip. Musculoskeletal Symptoms Back Pain,Difficulty Walking, Joint Pain,Radiating Pain into Limb History of Falling (Recent or History of No ) Patient is completely paralyzed or No completely immobile Mental Status Oriented to own ability Comment Will bring walker. Is patient on oxygen? No Does patient have FARFAN/SOB No Hx Sleep Apnea No CPAP/BIPAP use not prescribed Currently Taking a Beta [place] No Can You Climb a Flight of Stairs Without Yes SOB Hx Chest Pain No Hx SOB Yes: Now resolved. Hx Syncope or Dizziness No Anti-Coagulant Therapy No Has a Real Estate Services Administrator No Cardiac Testing Yes: Echo 07/09/24 Hx Pacemaker/ICD No Pacemaker Rep Required? No Cardiac Clearance Received Not Applicable Dysphagia No Gastrointestinal Symptoms None Bladder Pattern Nocturia Urinary Catheter Present No Hx Urinary Self Catheterization No Diabetes No Patient No Lactating No Hx Drug Resistant Organism No Presence of External or Internal Medical No Devices Have you had any close contact with No someone diagnosed with COVID-19? Are you experiencing any of these No symptoms symptoms? Received a COVID vaccine? Yes Comment Denies covid last 2 months. Marital Status Lives With spouse Current Living Arrangements House Number of Floors (Floors) One Floor Number of Stairs To Enter/Railing? One step to enter without railing. Support System Spouse Patient Discharge Plan Description Return Home Additional comment Advised same day surgery. Feels Safe in Current Environment Yes Do you have a plan to hurt yourself or No Plan others? Emergency Contact Name Dave Mac - Emergency Contact Advance Directives? Yes Advance Directives on File Yes: POLST Requested Patient Bring Advanced Not Applicable Directives DOS PAC Instructions Assistance for 24 hours post- op,Do not shave/clip surgical site,Durable medical equipment ,Medications to take/avoid, Nasal antibiotic,No ETOH/ petroleum product on skin DOS, NPO,Post-op transportation,Pre -surgical wash,Sensory aids, Sturdy shoes/comfortable clothes,Do not bring valuables and remove jewelry
== END 2024-08-26 11:43 | disposition home or self-care (01) ==
LOC: OR 11:38 → AC 11:41
PROVIDERS: PCP Internal Medicine; Referring Provider Internal Medicine; Visit Provider Orthopaedic Surgery
PROC: (CPT 27130; principal; 2024-08-25 13:45)
DX: M16.12 Unilateral primary osteoarthritis, left hip (principal); R93.7 Abnormal findings on diagnostic imaging of other parts of musculoskeletal system; M25.752 Osteophyte, left hip
CPT/HCPCS: 27130; 36415; 73502; 73503; 85014; 85018; 97161; 97165; 97530; 97535; C1776; J0666; J0690; J2704; J3010